=== PATIENT | female | born 1995 | race Caucasian/White ===

== ENCOUNTER 2023-10-29 18:13 | Outpatient (CLI) | payer BC, SELFPAY | END 2023-10-29 18:14 | disposition home or self-care (01) | PROVIDERS: PCP Family Medicine; Visit Provider Family Medicine | DX: D64.9 Anemia, unspecified (principal); Z98.84 Bariatric surgery status | CPT/HCPCS: 80053; 82607; 82728; 83540; 84443; 84590; 87086 ==

== ENCOUNTER 2023-12-31 13:38 | Outpatient (CLI) | payer BC, SELFPAY | END 2023-12-31 13:39 | disposition home or self-care (01) | LOC: LKVREF 13:39 | PROVIDERS: PCP Family Medicine; Visit Provider Family Medicine | DX: D64.9 Anemia, unspecified (principal); Z86.39 Personal history of other endocrine, nutritional and metabolic disease | CPT/HCPCS: 82306 ==